=== PATIENT | female | born 1930 | race Hispanic/Latino ===

== ENCOUNTER 2017-07-25 17:18 | Emergency (ER) | payer MEDICARE, BC, MEDICAID ==
[2017-07-25 20:54] LABS: #Eosinphils 0.3 thou/uL (0.0-0.7); #Lymphocytes 1.9 thou/uL (1.20-3.40); #Monocytes 0.6 thou/uL (0.11-0.59); #Neutrophils 5.5 thou/uL (1.40-6.50); %Basophils 0.4 % (0.0-1.0); %Eosinophils 3.2 % (0.0-10.0); %Lymphocytes 23.3 % (21.0-51.0); %Monocytes 7.1 % (0.0-10.0); Mean Platelet Volume 7.2 fL (7.4-10.4); Red Blood Cell (RBC) Count 4.45 mill/uL (4.20-5.40); White Blood Cell (WBC) Count 8.3 thou/uL (4.8-10.8)
[2017-07-25 21:00] LABS: Bilirubin Negative (Negative); Blood, Urine Negative (Negative); Glucose, Urine (Dipstick) Negative (Negative); Ketone, Urine Negative (Negative); Nitrite Negative (Negative); Protein, Urine (Dipstick) Negative (Neg-Trace)
[2017-07-25 21:01] LABS: Bacteria/HPF 1+ HPF (None Seen); Hyaline Casts/LPF 0-3 HYALINE CAST LPF (0-3 Hyaline); RBC/HPF 0-3 HPF (0-3); Squamous Epithelial 0-3 HPF (0-3)
--- NOTE | 2017-07-25 21:08 | CT ---
CT BRAIN WITHOUT CONTRAST: HISTORY: Injury. Fall. Altered mental status. Trauma to head during fall. COMPARISON: 02/03/2016 FINDINGS: Changes of chronic small vessel ischemic disease are again seen. Ventricular size is stable, and th e basilar cisterns are patent. No evidence of acute infarct, hemorrhage, midline shift, or abnormal extraaxial fluid collections is noted. The bony calvarium is intact. The visualized paranasal sin uses and mastoid air cells are well aerated. There is a scalp contusion posteriorly at the level of the vertex. IMPRESSION: No CT evidence of acute intracranial process. POS: [facility]
[2017-07-25 21:21] LABS: ALT (SGPT) 31 U/L (8-55); AST (SGOT) 30 U/L (5-34); Alkaline Phosphatase 98 U/L (40-150); Anion Gap 12 mmol/L (10-20); BUN (Urea Nitrogen) 27 mg/dL (9.8-20.1); Bilirubin, Total 0.3 mg/dL (0.2-1.2); Calc. Creatinine Clearance 0 mL/min (70-130); Calcium 9.2 mg/dL (7.8-10.44); Carbon Dioxide 29 mmol/L (23-31); Chloride 105 mmol/L (98-107); Estimated GFR-MDRD 36; Protein, Total 7.6 g/dL (6.0-8.3)
== END 2017-07-25 22:55 | disposition home or self-care (01) ==
LOC: ERS 17:18
DX: S00.03XA Contusion of scalp, initial encounter (principal); N39.0 Urinary tract infection, site not specified; I48.91 Unspecified atrial fibrillation; I25.10 Atherosclerotic heart disease of native coronary artery without angina pectoris; E11.9 Type 2 diabetes mellitus without complications; E78.5 Hyperlipidemia, unspecified; I10 Essential (primary) hypertension; M19.90 Unspecified osteoarthritis, unspecified site; G62.9 Polyneuropathy, unspecified; G47.30 Sleep apnea, unspecified; F32.9 Major depressive disorder, single episode, unspecified; Z79.84 Long term (current) use of oral hypoglycemic drugs; Z79.01 Long term (current) use of anticoagulants; Z79.899 Other long term (current) drug therapy; W01.10XA Fall on same level from slipping, tripping and stumbling with subsequent striking against unspecified object, initial encounter
CPT/HCPCS: 36415; 70450; 80053; 81003; 81015; 85025

== ENCOUNTER 2017-11-04 13:34 | Emergency (ER) | payer MEDICARE, BC, MEDICAID ==
--- NOTE | 2017-11-04 17:49 | RAD ---
RIGHT FOOT THREE VIEWS: History: Diabetic neuropathy with foot pain. FINDINGS: There are skin and vascular calcifications noted. There are calcaneal spurs present. There is some ar thritic change of the tarsal bone region and first metatarsal phalangeal joint. No signs of any neuro pathic type joint. IMPRESSION: Arthritic changes of the foot. POS: [facility]
== END 2017-11-04 18:20 | disposition home or self-care (01) ==
LOC: ERS 13:34
DX: S90.821A Blister (nonthermal), right foot, initial encounter (principal); I48.91 Unspecified atrial fibrillation; E78.5 Hyperlipidemia, unspecified; I10 Essential (primary) hypertension; G47.30 Sleep apnea, unspecified; E11.40 Type 2 diabetes mellitus with diabetic neuropathy, unspecified; X58.XXXA Exposure to other specified factors, initial encounter; F32.9 Major depressive disorder, single episode, unspecified
CPT/HCPCS: 36416

== ENCOUNTER 2017-12-27 11:50 | Emergency (ER) | payer MEDICARE, BC, MEDICAID ==
--- NOTE | 2017-12-27 13:05 | RAD ---
RADIOGRAPH CHEST 1 VIEW: HISTORY: An 87-year-old female with altered mental status. FINDINGS: There is cardiomegaly. The thoracic aorta is tortuous and ectatic. There is no evidence of air space density, pulmonary edema, or pneumothorax. The lateral costophrenic angles are sharp. There is a l eft subclavian triple-lead pacemaker. IMPRESSION: 1) No acute pulmonary findings. 2) Cardiomegaly without congestive heart failure. 3) Ectasia of thoracic aorta. 4) Pacemaker. hiram [] POS: [facility]
[2017-12-27 13:21] LABS: #Eosinphils 0.1 thou/uL (0.0-0.7); #Lymphocytes 1.8 thou/uL (1.20-3.40); #Monocytes 0.5 thou/uL (0.11-0.59); #Neutrophils 4.5 thou/uL (1.40-6.50); %Basophils 0.5 % (0.0-1.0); %Eosinophils 1.9 % (0.0-10.0); %Lymphocytes 25.3 % (21.0-51.0); %Neutrophils 65.3 % (42.0-75.0); Hemoglobin 13.3 g/dL (12.0-16.0); Mean Corpuscular HGB CONC 31.9 g/dL (32.0-36.0); Mean Corpuscular Hemoglobin 27.8 pg (27.0-31.0); Mean Corpuscular Volume 87.1 fl (81.0-99.0); Mean Platelet Volume 7.2 fL (7.4-10.4); Platelet Count 220 thou/uL (130-400); RBC Distribution Width 13.9 % (11.5-14.5); Red Blood Cell (RBC) Count 4.79 mill/uL (4.20-5.40)
[2017-12-27 13:42] LABS: ALT (SGPT) 39 U/L (8-55); AST (SGOT) 42 U/L (5-34); Albumin 3.6 g/dL (3.4-4.8); Alkaline Phosphatase 91 U/L (40-150); Anion Gap 11 mmol/L (10-20); BUN (Urea Nitrogen) 29 mg/dL (9.8-20.1); Bilirubin, Total 0.6 mg/dL (0.2-1.2); Calc. Creatinine Clearance 0 mL/min (70-130); Calcium 9.6 mg/dL (7.8-10.44); Carbon Dioxide 29 mmol/L (23-31); Chloride 108 mmol/L (98-107); Estimated GFR-MDRD 41; Glucose 109 mg/dL (83-110); Potassium 4.8 mmol/L (3.5-5.1); Protein, Total 7.6 g/dL (6.0-8.3); Sodium 143 mmol/L (136-145)
[2017-12-27 13:45] LABS: CKMB 4.4 ng/mL (0-6.6); Troponin I Less than 0.010 ng/mL (< 0.028)
[2017-12-27 15:04] LABS: Bilirubin Negative (Negative); Blood, Urine Large (Negative); Clarity CLOUDY (Clear); Glucose, Urine (Dipstick) Negative (Negative); Leukocyte Small (Negative); Nitrite Positive (Negative); Protein, Urine (Dipstick) Negative (Neg-Trace); Specific Gravity, Urine 1.016 (1.002-1.036)
[2017-12-27 15:08] LABS: Bacteria/HPF 3+ HPF (None Seen); Hyaline Casts/LPF 0-3 HYALINE CAST LPF (0-3 Hyaline); Pathc Cast-AUWi Flag 0.43 (0-2.49); RBC/HPF GREATER THAN 50-TNTC HPF (0-3); Squamous Epithelial 0-3 HPF (0-3)
[2017-12-27 15:30] LABS: Crystals/HPF None Seen HPF (Negative); Oval Fat Bodies/HPF None Seen HPF (None Seen); Renal Epithelial None Seen HPF (0-3); Transitional Epithelial NONE SEEN HPF (0-3); Trichomonas/HPF None Seen HPF (None Seen)
== END 2017-12-27 16:58 | disposition home or self-care (01) ==
LOC: ERS 11:50
DX: R41.82 Altered mental status, unspecified (principal); N39.0 Urinary tract infection, site not specified; I48.91 Unspecified atrial fibrillation; E11.9 Type 2 diabetes mellitus without complications; E78.5 Hyperlipidemia, unspecified; I10 Essential (primary) hypertension; G47.30 Sleep apnea, unspecified
CPT/HCPCS: 36415; 71045; 80053; 81003; 81015; 82553; 83605; 84484; 85025; 93005; 96360; A4353

== ENCOUNTER 2018-05-22 11:10 | Outpatient (CLI) | payer MEDICARE, BC, MEDICAID ==
[2018-05-22 12:32] LABS: Hemoglobin 12.6 g/dL (12.0-16.0); Mean Corpuscular HGB CONC 32.4 g/dL (32.0-36.0); Mean Corpuscular Hemoglobin 28.8 pg (27.0-31.0); Mean Platelet Volume 7.6 fL (7.4-10.4); Platelet Count 204 thou/uL (130-400); RBC Distribution Width 16.1 % (11.5-14.5); Red Blood Cell (RBC) Count 4.39 mill/uL (4.20-5.40)
[2018-05-22 12:41] LABS: INR-International Normal Ratio 2.4
[2018-05-22 12:42] LABS: PTT 55.2 SEC (22.9-36.1)
[2018-05-22 12:56] LABS: Anion Gap 9 mmol/L (10-20); BUN (Urea Nitrogen) 40 mg/dL (9.8-20.1); Calc. Creatinine Clearance 0 mL/min (70-130); Calcium 9.5 mg/dL (7.8-10.44); Carbon Dioxide 31 mmol/L (23-31); Chloride 106 mmol/L (98-107); Estimated GFR-MDRD 31; Glucose 131 mg/dL (83-110); Potassium 4.8 mmol/L (3.5-5.1); Sodium 141 mmol/L (136-145)
--- NOTE | 2018-05-23 06:17 | EKG ---
Test Reason : Blood Pressure : / mmHG Vent. Rate : 082 BPM Atrial Rate : 076 BPM P-R Int : 000 ms QRS Dur : 180 ms QT Int : 454 ms P-R-T Axes : 000 -10 -60 degrees QTc Int : 530 ms Poor data quality, interpretation may be adversely affected Electronic ventricular pacemaker When compared with ECG of 27-DEC-2017 12:41, Vent. rate has decreased BY 14 BPM Confirmed by SHANON DESIR ([id number]) on 05/23/2018 6:17:42 AM Referred By: [facility] Confirmed By:SHANON DESIR
== END 2018-05-22 11:11 | disposition home or self-care (01) ==
LOC: LABBT 11:10
PROVIDERS: ATTEND Internal Medicine Cardiovascular Disease
DX: Z01.818 Encounter for other preprocedural examination (principal); I48.91 Unspecified atrial fibrillation
CPT/HCPCS: 80048; 85027; 85610; 85730; 93005; 93010

== ENCOUNTER → 2018-06-02 | Day surgery (SDC) | payer MEDICARE, BC, MEDICAID ==
[2018-05-22 11:25] VITALS: BMI 30.2
[~2018-06-02] MED LIST: DOPamine 400 MG/D5W 250 ML 250 ML ONE; Fentanyl 100 MCG/2 ML VIAL ONE; Heparin 10,000 UNITS/1 ML VIAL ONE; Heparin 1000 UNIT/NS 500ML(OR) 500 ML ONE; Lidocaine 1% (PF) 30 ML VIAL ONE; Midazolam HCl 2 mg/2 ml Vial ONE
--- NOTE | 2018-06-02 12:54 | OP ---
DATE OF PROCEDURE: 06/02/2018 SURGEON: Dr. Chano Lauren PROCEDURE: AV itzel ablation report. REASON FOR PROCEDURE: Ms. Dunn is an 88-year-old female with history of persistent atrial fibrillation, previously well suppressed with amiodarone, but more recently amiodarone is ineffective. She is here for AV itzel ablation, hence rapid ventricular rates and a poor biventricular pacing percentage. ANESTHESIA: The patient received Versed and fentanyl for conscious sedation. Total of about 60 minutes of conscious sedation. PROCEDURE: After adequate sedation achieved, the right femoral venous area was prepped, the area anesthetized using subcutaneous lidocaine. With ultrasound guidance, the right femoral vein was cannulated and 8 English short sheath was introduced. Through this a Thermo[employer] SF catheter was advanced to the right atrium. It was used to map the right ventricle, right His bundle, AV node and right atrial structures. Recording was performed in each location. The following findings were noted. Baseline cycle length 783 milliseconds, MD 301, QRS 82, QT 3998, 321, HV was 75 milliseconds. Following that, the complete AV itzel area ablation was performed at 40 nolan. A total of 10 lesions were delivered to ablation was 10 minutes and 13 seconds. At the end of the case, a junctional escape rhythm was achieved at 40 beats per minute. At this point dopamine was administered and the AV itzel block persisted. At the end of the case the cardiac study not show significant changes. Blood pressure remained stable. The patient tolerated procedure well. ICD was checked pre and post-procedure found to be adequate. Reprogramming the ICD was performed to 75 beats per minute. CONCLUSION: Successful AV itzel ablation. PLAN: Stop amiodarone. Continue routine postop care, rhythm, anticoagulation. [facility]
--- NOTE | 2018-06-02 16:10 | EKG ---
Test Reason : POST ABLATION Blood Pressure : / mmHG Vent. Rate : 076 BPM Atrial Rate : 062 BPM P-R Int : 000 ms QRS Dur : 186 ms QT Int : 472 ms P-R-T Axes : 000 -12 -59 degrees QTc Int : 531 ms Electronic ventricular pacemaker When compared with ECG of 22-MAY-2018 12:03, Vent. rate has decreased BY 6 BPM Confirmed by FELIPE CASTILLO ([id number]) on 06/02/2018 4:10:09 PM Referred By: [facility] Confirmed By:FELIPE CASTILLO
== END ==
LOC: SDC 09:34
PROVIDERS: ATTEND Internal Medicine Cardiovascular Disease
PROC: 4A023FZ Measurement of Cardiac Rhythm, Percutaneous Approach (ICD-10-PCS; principal; 2018-06-02)
PROC: 4A0234Z Measurement of Cardiac Electrical Activity, Percutaneous Approach (ICD-10-PCS; 2018-06-02)
PROC: 02583ZZ Destruction of Conduction Mechanism, Percutaneous Approach (ICD-10-PCS; 2018-06-02)
DX: I48.1 Persistent atrial fibrillation (principal); I11.9 Hypertensive heart disease without heart failure; I43 Cardiomyopathy in diseases classified elsewhere; E11.9 Type 2 diabetes mellitus without complications; I12.9 Hypertensive chronic kidney disease with stage 1 through stage 4 chronic kidney disease, or unspecified chronic kidney disease; N18.9 Chronic kidney disease, unspecified; I44.2 Atrioventricular block, complete; Z79.01 Long term (current) use of anticoagulants; Z79.1 Long term (current) use of non-steroidal anti-inflammatories (NSAID); Z79.899 Other long term (current) drug therapy; Z88.8 Allergy status to other drugs, medicaments and biological substances; Z95.810 Presence of automatic (implantable) cardiac defibrillator
CPT/HCPCS: 76942; 93005; 93623; 93650; C1769; C2630; 99152; 99153; J1265; J1644; J2001; J2250; J3010

== ENCOUNTER 2018-07-22 11:58 | Outpatient (CLI) | payer MEDICARE, BC, MEDICAID ==
[2018-07-22 13:25] LABS: Hemoglobin 13.8 g/dL (12.0-16.0); Mean Corpuscular HGB CONC 31.2 g/dL (32.0-36.0); Mean Corpuscular Volume 89.7 fL (78.0-98.0); Mean Platelet Volume 8.4 fL (7.4-10.4); Platelet Count 216 thou/uL (130-400); RBC Distribution Width 14.4 % (11.5-14.5); Red Blood Cell (RBC) Count 4.93 mill/uL (4.20-5.40); White Blood Cell (WBC) Count 7.3 thou/uL (4.8-10.8)
[2018-07-22 13:29] LABS: INR-International Normal Ratio 1.5; PTT 45.5 SEC (22.9-36.1); Prothrombin Time 18.3 SEC (12.0-14.7)
[2018-07-22 13:41] LABS: Anion Gap 13 mmol/L (10-20); BUN (Urea Nitrogen) 35 mg/dL (9.8-20.1); Calc. Creatinine Clearance 0 mL/min (70-130); Calcium 9.1 mg/dL (7.8-10.44); Carbon Dioxide 25 mmol/L (23-31); Chloride 108 mmol/L (98-107); Estimated GFR-MDRD 38; Glucose 98 mg/dL (83-110); Potassium 4.8 mmol/L (3.5-5.1); Sodium 141 mmol/L (136-145)
--- NOTE | 2018-07-23 07:55 | EKG ---
Test Reason : Blood Pressure : / mmHG Vent. Rate : 103 BPM Atrial Rate : 045 BPM P-R Int : 000 ms QRS Dur : 164 ms QT Int : 426 ms P-R-T Axes : 000 -19 -68 degrees QTc Int : 558 ms Electronic ventricular pacemaker When compared with ECG of 02-JUN-2018 13:44, Vent. rate has increased BY 27 BPM Confirmed by SHANON DESIR ([id number]) on 07/23/2018 7:54:36 AM Referred By: [facility] Confirmed By:SHANON DESIR
== END 2018-07-22 11:59 | disposition home or self-care (01) ==
LOC: LABBT 11:58
PROVIDERS: ATTEND Internal Medicine Cardiovascular Disease
DX: Z01.818 Encounter for other preprocedural examination (principal); I48.91 Unspecified atrial fibrillation
CPT/HCPCS: 80048; 85027; 85610; 85730; 93005; 93010

== ENCOUNTER → 2018-07-29 | Day surgery (SDC) | payer MEDICARE, BC, MEDICAID ==
[~2018-07-29] MED LIST changes: -DOPamine 400 MG/D5W 250 ML 250 ML ONE; -Heparin 1000 UNIT/NS 500ML(OR) 500 ML ONE; +Isoproterenol 0.2 MG/1 ML AMP ONE; +Meperidine HCl/PF 25 MG/ML VIAL ONE
--- NOTE | 2018-07-29 19:09 | OP ---
AV NODE ABLATION PROCEDURE REPORT REFERRING PHYSICIAN: Lexx Varma M.D. REASON FOR PROCEDURE: Ms. Dunn is an 88-year-old woman with prior history of atrial fibrillation with rapid rate. She has a biventricular pacemaker in place with suboptimal RV pacing due to afib and RVR. She has had a prior AV itzel ablation on June 02, 2018, but with recurrent AV conduction noted and hence she was brought back for repeat AV node ablation. PROCEDURE: The patient received propofol by Anesthesia specialist. After adequate level of sedation achieved, the right femoral venous area was prepped, draped, and anesthetized using subcutaneous lidocaine. With ultrasound guidance , the right femoral vein was cannulated. A standard 8-Gabonese sheath was introduced, a short sheath was introduced through which a ThermoCool SF catheter was advanced to the right atrium. Mapping of the right atrium and His bundle was performed. 2 minutes of ablation was performed of the His bundle/ AV itzel area. This achieved was complete AV block. Following that isuprel was administered and AV conductions were rechecked. At the end of the procedure no change in the cardiac silhouette is noted. CONCLUSION: 1. Successful AV node ablation. 2. Adequate pacemaker function pre and post-procedure. 3. Plan and resume anticoagulation. [facility]
== END ==
LOC: SDC 09:53
PROVIDERS: ATTEND Internal Medicine Cardiovascular Disease
PROC: 02583ZZ Destruction of Conduction Mechanism, Percutaneous Approach (ICD-10-PCS; principal; 2018-07-29)
PROC: 02K83ZZ Map Conduction Mechanism, Percutaneous Approach (ICD-10-PCS; 2018-07-29)
DX: I48.1 Persistent atrial fibrillation (principal); I44.2 Atrioventricular block, complete; I13.2 Hypertensive heart and chronic kidney disease with heart failure and with stage 5 chronic kidney disease, or end stage renal disease; E11.22 Type 2 diabetes mellitus with diabetic chronic kidney disease; N18.9 Chronic kidney disease, unspecified; I50.9 Heart failure, unspecified; I43 Cardiomyopathy in diseases classified elsewhere; I87.2 Venous insufficiency (chronic) (peripheral); Z79.01 Long term (current) use of anticoagulants; Z79.899 Other long term (current) drug therapy; Z88.8 Allergy status to other drugs, medicaments and biological substances; Z95.0 Presence of cardiac pacemaker; Z98.890 Other specified postprocedural states
CPT/HCPCS: 76942; 93005; 93650; C1769; C2630; 93010; J1644; J2001; J2175; J2250; J3010

== ENCOUNTER 2019-03-23 11:28 | Emergency (ER) | payer MEDICARE, BC, MEDICAID ==
--- NOTE | 2019-03-23 13:27 | ULT ---
EXAM: Left lower extremity venous Doppler US HISTORY: left lower extremity edema and pain FINDINGS: Grayscale, color-flow, Doppler evaluation, spectral analysis of the left lower extremity venous struc tures is performed with 2-D imaging. The left common femoral, superficial femoral, popliteal, posterior tibial, proximal greater saphenous and profunda femoral veins are imaged. There is normal luminal compressibility, flow, and augmentation the visualized deep venous structures of the left lower extremity. IMPRESSION: No evidence of a deep vein thrombosis in the left lower extremity.
--- NOTE | 2019-03-23 13:47 | RAD ---
Portable chest: HISTORY: Chest pain COMPARISON: 12/27/2017 FINDINGS:Cardiomegaly. Transvenous pacemaker leads again noted. Lungs appear clear of infiltrate. No significant effusion or vascular congestion. IMPRESSION: No acute finding
[2019-03-23 14:04] LABS: #Eosinphils 0.4 thou/uL (0.0-0.7); #Lymphocytes 2.3 thou/uL (1.20-3.40); #Monocytes 0.6 thou/uL (0.11-0.59); #Neutrophils 4.9 thou/uL (1.40-6.50); %Basophils 0.4 % (0.0-1.0); %Eosinophils 4.7 % (0.0-10.0); %Lymphocytes 27.9 % (21.0-51.0); %Monocytes 6.7 % (0.0-10.0); %Neutrophils 60.2 % (42.0-75.0); Hemoglobin 13.8 g/dL (12.0-16.0); Mean Corpuscular HGB CONC 32.7 g/dL (32.0-36.0); Mean Corpuscular Hemoglobin 29.9 pg (27.0-31.0); Mean Corpuscular Volume 91.4 fL (78.0-98.0); Mean Platelet Volume 7.8 fL (7.4-10.4); Platelet Count 209 thou/uL (130-400); RBC Distribution Width 13.3 % (11.5-14.5); Red Blood Cell (RBC) Count 4.63 mill/uL (4.20-5.40); White Blood Cell (WBC) Count 8.1 thou/uL (4.8-10.8)
[2019-03-23 15:39] LABS: ALT (SGPT) 8 U/L (8-55); AST (SGOT) 16 U/L (5-34); Albumin 3.7 g/dL (3.4-4.8); Alkaline Phosphatase 106 U/L (40-150); Anion Gap 13 mmol/L (10-20); BUN (Urea Nitrogen) 34 mg/dL (9.8-20.1); Bilirubin, Total 0.6 mg/dL (0.2-1.2); Calc. Creatinine Clearance 0 mL/min (70-130); Calcium 9.5 mg/dL (7.8-10.44); Carbon Dioxide 27 mmol/L (23-31); Chloride 104 mmol/L (98-107); Estimated GFR-MDRD 40; Globulin 3.9 g/dL (2.4-3.5); Glucose 154 mg/dL (83-110); Potassium 4.5 mmol/L (3.5-5.1); Protein, Total 7.6 g/dL (6.0-8.3); Sodium 139 mmol/L (136-145)
== END 2019-03-23 16:00 | disposition home or self-care (01) ==
LOC: ERS 11:28
DX: I89.0 Lymphedema, not elsewhere classified (principal); M25.562 Pain in left knee; I48.91 Unspecified atrial fibrillation; I25.10 Atherosclerotic heart disease of native coronary artery without angina pectoris; E11.9 Type 2 diabetes mellitus without complications; E78.5 Hyperlipidemia, unspecified; I10 Essential (primary) hypertension; G47.30 Sleep apnea, unspecified; Z79.899 Other long term (current) drug therapy; Z79.01 Long term (current) use of anticoagulants
CPT/HCPCS: 36415; 71045; 80053; 82553; 83690; 83880; 84484; 85025; 93005